=== PATIENT | male | born 1990 | race Caucasian/White ===

== ENCOUNTER 2018-05-27 14:19 | Emergency (ER) | payer SELFPAY ==
[~2018-05-27] VITALS: Ht 162.6 cm; Wt 95.3 kg
[2018-05-27] MEDS ORDERED: IV NORMAL SALINE 1,000ML 1,000 ML IV SCH (14:36)
[2018-05-27] MEDS ORDERED: IPRATRPIUM/ALBUTEROL 0.5/2.5MG 3 ML NEBU. NEB ONE (14:45)
--- NOTE | 2018-05-27 14:48 | PHYS DOC ---
Past History Past Medical History: No Pertinent History Past Surgical History: No Surgical History Smoking: Cigarettes Alcohol Use: Rarely Drug Use: None Adult General Chief Complaint Chief Complaint: FLU SYMPTOM HPI HPI Patient is a 28 year old male who presents with comparing of flulike symptom. Patient states he has had subjective fever, productive cough with yellow sputum , nasal congestion, sore throat after cough, myalgia for the last 5 days that did not get better with [id number] medication. Comparing of nausea and posttussive vomiting with multiple episodes of diarrhea every day and complaining of generalized weakness and not having energy. Patient denies sick contacts, focal neuro deficit, abdominal pain, urinary symptom. Review of Systems Review of Systems Constitutional: Reports subjective fever Eyes: Denies change in visual acuity, redness, or eye pain [] HENT: Reports nasal congestion or sore throat Respiratory: Reports cough and shortness of breath Cardiovascular: No additional information not addressed in HPI [] GI: Denies abdominal pain, reports nausea, vomiting, diarrhea [] : Denies dysuria or hematuria [] Musculoskeletal: Denies back pain or joint pain [] Integument: Denies rash or skin lesions [] Neurologic: Denies headache, focal weakness or sensory changes [] Endocrine: Denies polyuria or polydipsia [] All other systems were reviewed and found to be within normal limits, except as documented in this note. Current Medications Current Medications Current Medications Medications (Trade) Dose Ordered Sig/Mirian Start Time Stop Time Status Last Admin Dose Admin Albuterol/ Ipratropium (Duoneb) 3 ml 1X ONCE 05/27/18 14:45 05/27/18 14:46 UNV Benzonatate (Tessalon Perle) 200 mg 1X ONCE 05/27/18 14:45 05/27/18 14:46 UNV Ketorolac Tromethamine (Toradol 30mg Vial) 30 mg 1X ONCE 05/27/18 14:45 05/27/18 14:46 UNV Ondansetron HCl (Zofran) 4 mg 1X ONCE 05/27/18 14:45 05/27/18 14:46 UNV Sodium Chloride 1,000 ml @ 1,000 mls/hr Q1H 05/27/18 14:36 05/27/18 15:35 UNV Allergies Allergies Allergies Coded Allergies Type Severity Reaction Last Updated Verified Penicillins Allergy Unknown 05/27/18 Yes Physical Exam Physical Exam Constitutional: Well developed, well nourished, mild distress, non-toxic appearance, febrile. [] HENT: Normocephalic, atraumatic, bilateral external ears normal, oropharynx dry , pharyngeal erythema and tonsillar edema with exudates, nose normal. [] Eyes: PERRLA, EOMI, conjunctiva normal, no discharge. [] Neck: Normal range of motion, no tenderness, supple, no stridor. [] Cardiovascular: Tachycardia, no murmur [] Lungs & Thorax: Bilateral breath sounds clear to auscultation [] Abdomen: Bowel sounds normal, soft, no tenderness, no masses, no pulsatile masses. [] Skin: Warm, dry, no erythema, no rash. [] Back: No tenderness, no CVA tenderness. [] Extremities: No tenderness, no cyanosis, no clubbing, ROM intact, no edema. [] Neurologic: Alert and oriented X 3, normal motor function, normal sensory function, no focal deficits noted. [] Psychologic: Affect normal, judgement normal, mood normal. [] Current Patient Data Vital Signs Vital Signs Date Time Temp Pulse Resp B/P (MAP) Pulse Ox O2 Delivery O2 Flow Rate FiO2 05/27/18 14:28 100.7 102 18 95 Room Air EKG EKG [] Radiology/Procedures Radiology/[place] [id number] IMAGING REPORT Signed PATIENT: DAVID LARA ACCOUNT: [id number] : 1990 LOCATION: ER AGE: 28 SEX: M EXAM STATUS: REG ER ORD. PHYSICIAN: ARPIT LAMBERT MD REASON: cough and fever PROCEDURE: CHEST PA & LATERAL Chest, PA and Lateral: Technique: PA and lateral views of the chest were obtained. History: Cough, fever. Comparison: None. Findings: Mild cardiomegaly.. Faint patchy bilateral perihilar interstitial lung markings likely atypical or viral infection.. The pleural margins are clear. Impression: Mild prominent bilateral perihilar interstitial lung markings likely atypical or viral infection.. Electronically signed by: Alejandro Cabrales MD (05/27/2018 3:08 PM) [facility] DICTATED AND SIGNED BY: ALEJANDRO CABRALES MD DATE: 05/27/18 8888 CC: ARPIT LAMBERT MD; PCP,NO ~ Course & Med Decision Making Course & Med Decision Making Pertinent Labs and Imaging studies reviewed. (See chart for details) Evaluation of patient in ER showed 28-year-old male patient with complaining of fever and productive cough and generalized weakness and diarrhea for several days. Patient had fever of 100.8 and tachycardia. Chest x-ray showed bibasilar infiltrates. Patient had negative flu and strep test with white count of 15, 000. Patient treated with IV fluid, DuoNeb, Rocephin and Toradol and Tylenol and felt better. Plan discharge patient home to diagnose of pneumonia. Dragon Disclaimer Dragon Disclaimer This electronic medical record was generated, in whole or in part, using a voice recognition dictation system. Departure Departure: Impression: Primary Impression: Pneumonia Additional Impressions: Fever Leukocytosis Tobacco abuse Tobacco abuse counseling Disposition: HOME, SELF-CARE (at 1628) Condition: IMPROVED Referrals: PCP,JANELLE (PCP) Patient Instructions: Fever, Adult, Pneumonia, Adult, Smoking Cessation, Tips For Success Additional Instructions: Drink plenty of liquids Follow-up with your primary care physician in 2-3 days Return to ER if not getting better Scripts Azithromycin (ZITHROMAX) 250 Mg Tablet 1 PKG PO UD for infection, #1 PKG Prov: ARPIT LAMBERT MD 05/27/18 Benzonatate (TESSALON PERLE) 100 Mg Capsule 1 CAP PO TID for cough, #21 CAP Prov: ARPIT LAMBERT MD 05/27/18 Ibuprofen (IBUPROFEN) 800 Mg Tablet 1 TAB PO TID for pain, #30 TAB Prov: ARPIT LAMBERT MD 05/27/18 Problem Qualifiers Primary Impression: Pneumonia Pneumonia type: due to unspecified organism Laterality: bilateral Lung location: lower lobe of lung Qualified Codes: J18.1 - Lobar pneumonia, unspecified organism Additional Impressions: Fever Fever type: unspecified Qualified Codes: R50.9 - Fever, unspecified Leukocytosis Leukocytosis type: unspecified Qualified Codes: D72.829 - Elevated white blood cell count, unspecified ARPIT LAMBERT MD May 27, 2018 14:48
[2018-05-27 15:00] LABS: BASO # 0.1 x10^3/uL (0.0-0.2); BASO % 0 % (0-3); EOS % 0 % (0-3); HEMOGLOBIN 15.6 g/dL (13.0-17.5); LYMPH # 1.6 x10^3/uL (1.0-4.8); LYMPH % 10 % (24-48); MEAN CORPUSCULAR HEMOGLOBIN 30 pg (25-35); MEAN CORPUSCULAR HGB CONC 34 g/dL (31-37); MEAN CORPUSCULAR VOLUME 87 fL (79-100); MONO # 1.5 x10^3/uL (0.0-1.1); MONO % 10 % (0-9); NEUT # 12.5 x10^3uL (1.8-7.7); NEUT % 80 % (31-73); PLATELET COUNT 264 x10^3/uL (140-400); RED BLOOD COUNT 5.28 x10^6/uL (4.30-5.70); RED CELL DISTRIBUTION WIDTH 13.5 % (11.5-14.5); WHITE BLOOD COUNT 15.7 x10^3/uL (4.0-11.0)
[2018-05-27] MEDS ORDERED: ACETAMINOPHEN 500 MG TABLET PO ONE (15:00)
[2018-05-27] MEDS ORDERED: BENZONATATE 100 MG CAPSULE. PO ONE (15:00)
[2018-05-27] MEDS ORDERED: ONDANSETRON PF 4 MG/2 ML VIAL. IV ONE (15:00)
[2018-05-27] MEDS ORDERED: KETOROLAC 30 MG/ML VIAL. IV ONE (15:00)
--- NOTE | 2018-05-27 15:10 | RAD ---
Chest, PA and Lateral: Technique: PA and lateral views of the chest were obtained. History: Cough, fever. Comparison: None. Findings: Mild cardiomegaly.. Faint patchy bilateral perihilar interstitial lung markings likely atypical or viral infection.. The pleural margins are clear. Impression: Mild prominent bilateral perihilar interstitial lung markings likely atypical or viral infection.. Electronically signed by: Alejandro Cabrales MD (05/27/2018 3:08 PM) [facility]
[2018-05-27 15:16] LABS: INFLUENZA A PATIENT NEGATIVE (NEGATIVE); INFLUENZA B PATIENT NEGATIVE (NEGATIVE)
[2018-05-27 15:38] LABS: ALBUMIN 3.5 g/dL (3.4-5.0); ALBUMIN/GLOBULIN RATIO 0.8 (1.0-1.7); CALCIUM 9.3 mg/dL (8.5-10.1); CREATININE 0.8 mg/dL (0.7-1.3); GFR 115.1; POTASSIUM 3.7 mmol/L (3.5-5.1); TOTAL BILIRUBIN 0.4 mg/dL (0.2-1.0); TOTAL PROTEIN 7.7 g/dL (6.4-8.2)
[2018-05-27] MEDS ORDERED: IV NORMAL SALINE 1,000ML 1,000 ML IV ONE (15:45)
[2018-05-27] MEDS ORDERED: cefTRIAXone SODIUM 1 GM VIAL ONE (15:46)
[2018-05-27] MEDS ORDERED: IV NORMAL SALINE 50ML 50 ML ONE (15:46)
[2018-05-27 16:18] LABS: % ATYL 2 % (0-0); % BANDS 1 % (0-9); % LYMPHS 7 % (24-48); % MONOS 6 % (0-10); % SEGS 84 % (35-66)
[2018-05-27 16:19] LABS: ANISOCYTOSIS SLIGHT; PLT ESTIMATE ADEQUATE (ADEQUATE)
[2018-05-27 16:25] VITALS: BP 122/72
[2018-05-27] MEDS ORDERED: BENZ100C PO (16:29)
[2018-05-27] MEDS ORDERED: IBUP800T19 PO (16:29)
[2018-05-27] MEDS ORDERED: AZIT250T PO (16:29)
== END 2018-05-27 16:36 | disposition home or self-care (01) ==
LOC: ER 14:19
DX: J18.1 Lobar pneumonia, unspecified organism (principal); D72.829 Elevated white blood cell count, unspecified; R19.7 Diarrhea, unspecified; F17.210 Nicotine dependence, cigarettes, uncomplicated; Z71.6 Tobacco abuse counseling; Z88.0 Allergy status to penicillin
CPT/HCPCS: 36415; 71046; 80053; 85007; 85025; 87070; 87804; 87880; 94640; 96361; 96365; 96375; 99284; J0696; J1885; J2405; J7620; J7030

== ENCOUNTER 2021-01-21 04:32 | Emergency (ER) | payer OTHER ==
[~2021-01-21] VITALS: Ht 165.1 cm; Wt 108.2 kg
[~2021-01-21 04:32] MED LIST: AZIT250T PO; BENZ100C PO; IBUP800T19 PO
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
[2021-01-21 05:23] VITALS: BP 109/60
[2021-01-21] MEDS: MUPIROCIN 2% TOPICAL OINTMENT 22GM TUBE. TP SCH (05:30)
[2021-01-21] MEDS: MVI, ADULT NO.4 WITH VIT K 10 ML, THIAMINE INJ 100 MG in IV RINGERS SOLUTION,LACTATED 1... IV ONE (05:30)
[2021-01-21 05:32] LABS: BASO # 0.1 x10^3/uL (0.0-0.2); BASO % 1 % (0-3); EOS % 0 % (0-3); HEMATOCRIT 41.7 % (39.0-53.0); HEMOGLOBIN 14.1 g/dL (13.0-17.5); LYMPH # 2.6 x10^3/uL (1.0-4.8); LYMPH % 19 % (24-48); MEAN CORPUSCULAR HEMOGLOBIN 30 pg (25-35); MEAN CORPUSCULAR HGB CONC 34 g/dL (31-37); MEAN CORPUSCULAR VOLUME 89 fL (79-100); MONO # 0.9 x10^3/uL (0.0-1.1); MONO % 6 % (0-9); NEUT # 10.1 x10^3uL (1.8-7.7); NEUT % 74 % (31-73); PLATELET COUNT 294 x10^3/uL (140-400); RED BLOOD COUNT 4.71 x10^6/uL (4.30-5.70); WHITE BLOOD COUNT 13.7 x10^3/uL (4.0-11.0)
[2021-01-21 05:55] LABS: CALCIUM 8.8 mg/dL (8.5-10.1); CREATININE 0.8 mg/dL (0.7-1.3); GFR 113.5; POTASSIUM 4.1 mmol/L (3.5-5.1)
[2021-01-21 06:00] LABS: BARBITURATES NEG (NEG); BENZODIAZEPINES NEG (NEG); CANNABINOIDS POS (NEG); COCAINE POS (NEG); METHADONE NEG (NEG); OPIATES NEG (NEG); PHENCYCLIDINE NEG (NEG)
--- NOTE | 2021-01-21 06:00 | EKG ---
[address] [address] Test Date: 2021-01-21 Test Time: 05:13:13 Pat Name: DAVID LARA Department: Room: Gender: M Plate Conditioner: WINTER : 1990 Requested By: DESHAWN DEL CID Order Number: [id number] Reading MD: Alex Macario Measurements Intervals [place] Rate: 110 P: 58 TN: 162 QRS: 53 QRSD: 82 T: 34 QT: 324 QTc: 444 Interpretive Statements SINUS TACHYCARDIA Electronically Signed On 01-21-2021 7:11:26 HAMMER SETTER by Alex Macario
[2021-01-21 06:01] LABS: ALBUMIN 3.8 g/dL (3.4-5.0); DIRECT BILIRUBIN 0.1 mg/dL (0.0-0.2); MAGNESIUM 2.2 mg/dL (1.8-2.4); TOTAL BILIRUBIN 0.1 mg/dL (0.2-1.0); TOTAL PROTEIN 7.6 g/dL (6.4-8.2)
[2021-01-21 06:02] LABS: BACTERIA,URINE FEW /HPF (0-FEW); BILIRUBIN,URINE NEG (NEG); CLARITY,URINE CLEAR; COLOR,URINE YELLOW; GLUCOSE,URINE NEG (NEG); NITRITE,URINE NEG (NEG); UROBILINOGEN,URINE 0.2 mg/dL (0.2 mg/dL)
[2021-01-21 06:04] LABS: AMPHETAMINE/METHAMPHETAMINE NEG (NEG)
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
== END 2021-01-21 10:11 | disposition home or self-care (01) ==
LOC: ER 04:32
DX: S01.81XA Laceration without foreign body of other part of head, initial encounter (principal); R07.89 Other chest pain; F10.229 Alcohol dependence with intoxication, unspecified; F17.210 Nicotine dependence, cigarettes, uncomplicated; Y90.6 Blood alcohol level of 120-199 mg/100 ml; Z88.0 Allergy status to penicillin; V19.9XXA Pedal cyclist (driver) (passenger) injured in unspecified traffic accident, initial encounter; Y93.55 Activity, bike riding; Y92.89 Other specified places as the place of occurrence of the external cause; Y99.8 Other external cause status
CPT/HCPCS: 36415; 70450; 71045; 72125; 80048; 80076; 80307; 81001; 82550; 83735; 84484; 85025; 85610; 85730; 93005; 99285; G0480